=== PATIENT | male | born 1990 | race Two or more races ===

== ENCOUNTER 2023-12-08 06:27 | Emergency (ER) | payer OTHER ==
[~2023-12-08] VITALS: Ht 177.8 cm; Wt 188.2 kg
[2023-12-08] MEDS: HYDROcodone-ACET 10/325MG TAB PO ONE (07:51)
[2023-12-08] MEDS: IOHEXOL 300 MG/ML 100ML BOTTLE IJ ONE (08:05)
[2023-12-08 09:05] VITALS: PULSE 88; RESP 19; O2SAT 94
[2023-12-08 09:06] VITALS: TEMP 97.9
[2023-12-08] MEDS: ONDANSETRON HCL 4 MG/2 ML VIAL IV ONE (10:32)
[2023-12-08] MEDS ORDERED: IBU600T PO (10:32)
[2023-12-08] MEDS: MORPHINE SULFATE INJ 2 MG/ml SYRG IV ONE (10:33)
[2023-12-08 10:55] VITALS: BP 109/69; PULSE 104; RESP 22; O2SAT 93
== END 2023-12-08 10:59 | disposition home or self-care (01) ==
LOC: EDBD 06:27 → ER 06:27
DX: S00.33XA Contusion of nose, initial encounter (principal); M54.50 Low back pain, unspecified; R07.89 Other chest pain; J45.909 Unspecified asthma, uncomplicated; Z88.0 Allergy status to penicillin; V43.52XA Car driver injured in collision with other type car in traffic accident, initial encounter; Y93.89 Activity, other specified; Y92.410 Unspecified street and highway as the place of occurrence of the external cause; Y99.8 Other external cause status
CPT/HCPCS: 70450; 74177; 93005; 96374; 96375; 99285; J2270; J2405; Q9967